=== PATIENT | female | born 1985 ===

== ENCOUNTER 2018-07-03 17:49 | Emergency (ER) | payer MEDICAID ==
[2018-07-03 17:59] VITALS: BMI 27.3
--- NOTE | 2018-07-03 18:07 | ED PDOC ---
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 Pt. stated that her period is due soon and should be today or tomorrow, been having lower back pain and pelvic cramp, no vaginal bleeding or discharge, no urinary symptoms, had extensive work ups with the obgyn couple months ago with negative result including STI profile, no fever or chills, no headache or night sweat, no rash, no numbness or tingling, no other medical or psychological complaints. Past Medical History - Provider Review Nursing Documentation Reviewed: Yes - Infectious Disease Hx of Infectious Diseases: None - Tetanus Immunization Tetanus Immunization: Unknown - Endocrine/Metabolic Hx Hyperthyroidism: Yes - Genitourinary/Gynecological Other/Comment: HX of HPV - Psychiatric Hx Substance Use: No - Surgical History Hx Section: Yes (x1) - Anesthesia Hx Anesthesia: No - Suicidal Assessment Feels Threatened In Home Enviroment: No Family/Social History - Physician Review Nursing Documentation Reviewed: Yes Family/Social History: Unknown Family HX Smoking Status: Never Smoked Hx Alcohol Use: No Hx Substance Use: No Allergies/Home Meds Allergies/Adverse Reactions: Allergies No Known Allergies Allergy (Verified 01/29/15 20:23) Review of Systems - Review of Systems Constitutional: absent: Fatigue, Fevers Eyes: absent: Vision Changes ENT: absent: Hearing Changes Respiratory: absent: SOB, Cough Cardiovascular: absent: Chest Pain Gastrointestinal: absent: Abdominal Pain, Nausea, Vomiting Genitourinary Female: Other (pelvic cramp) Musculoskeletal: Back Pain. absent: Arthralgias, Neck Pain, Myalgias Skin: absent: Rash, Pruritis Neurological: absent: Headache, Dizziness Psychiatric: absent: Anxiety, Depression, Suicidal Ideation Physical Exam Vital Signs Reviewed: Yes Temperature: Afebrile Blood Pressure: Normal Pulse: Regular Respiratory Rate: Normal Appearance: Positive for: Well-Appearing, Non-Toxic, Comfortable Pain Distress: Mild Mental Status: Positive for: Alert and Oriented X 3 - Systems Exam Head: Present: Atraumatic, Normocephalic Pupils: Present: PERRL Extroacular Muscles: Present: EOMI Conjunctiva: Present: Normal Mouth: Present: Moist Mucous Membranes Neck: Present: Normal Range of Motion Respiratory/Chest: Present: Clear to Auscultation, Good Air Exchange. No: Respiratory Distress, Accessory Muscle Use Cardiovascular: Present: Regular Rate and Rhythm, Normal S1, S2. No: Murmurs Abdomen: Present: Normal Bowel Sounds. No: Tenderness, Distention, Peritoneal Signs, Rebound, Guarding, McBurney's Point Tender, Rovsing's Sign Present, Hernias, Scars Genitourinary/Pelvic Exam: Present: Other (Pt. declined. ) Back: Present: Normal Inspection. No: CVA Tenderness, Midline Tenderness, Paraspinal Tenderness, Pain with Leg Raise, Decubitus Ulcer Upper Extremity: Present: Normal Inspection, Normal ROM. No: Cyanosis, Edema Lower Extremity: Present: Normal Inspection. No: Edema Neurological: Present: GCS=15, CN II-XII Intact, Speech Normal Skin: Present: Warm, Dry, Normal Color. No: Rashes Psychiatric: Present: Alert, Oriented x 3, Normal Insight, Normal Concentration Medical Decision Making ED Course and Treatment: 07/03/18 18:06 -UA -Transvaginal -Tylenol -Observe and reassess 07/03/18 20:10 -Urine hcg is negative -UA show no UTI -Transvaginal sonogram show Unremarkable pelvic ultrasound. -Pt. feels well, no pain now, all labs/radiology results discussed, advised pmd and obgyn follow up within 2 days, plus return to the ER for any new or worsening signs or symptoms. -Discharge home with motrin, bed rest, heat compression, follow up with your own pmd and obgyn within 2 days, return to the ER for any new or worsening signs or symptoms. - RAD Interpretation Radiology Orders: 07/03/18 18:03 TRANSVAGINAL [US] Stat EXAM: US Pelvis, Complete Transvaginal and Transabdominal COMPARISON: None provided. CLINICAL HISTORY: Pelvic/back pain TECHNIQUE: Transvaginal and transabdominal pelvic ultrasound (complete) with image documentation. FINDINGS: ENDOMETRIUM: Normal thickness, measuring 9 mm. UTERUS/CERVIX: The uterus appears within normal limits, measuring 8.7 x 7.1 x 7.5 cm. No uterine fibroid or other mass evident. RIGHT OVARY: Normal Doppler flow. No abnormal mass. Measures 3.9 x 3.7 x 1.9 cm. LEFT OVARY: Normal Doppler flow. No abnormal mass. Measures 2.8 x 1.6 x 2.8 cm. FREE FLUID: No free fluid. IMPRESSION: Unremarkable pelvic ultrasound. Electronically signed on Jul 03, 2018 8:04:21 PM EST by: Jeanine Ramon M.D., Certified by [facility], Diagnostic Radiology Electronic Technician: Radiologist - PA / HORSE BREAKER / Resident Statement MD/DO has reviewed & agrees with the documentation as recorded. Disposition/Present on Arrival - Present on Arrival Any Indicators Present on Arrival: No History of DVT/PE: No History of Uncontrolled Diabetes: No Urinary Catheter: No History of Decub. Ulcer: No History Surgical Site Infection Following: None - Disposition Have Diagnosis and Disposition been Completed?: Yes Diagnosis: Low back pain Disposition: HOME/ ROUTINE Disposition Time: 20:14 Patient Plan: Discharge Condition: IMPROVED Additional Instructions: -Discharge home with motrin, bed rest, heat compression, follow up with your own pmd and obgyn within 2 days, return to the ER for any new or worsening signs or symptoms. Prescriptions: Ibuprofen [Motrin Tab] 600 mg PO QID PRN #30 tab PRN Reason: Other Referrals: Phong Palafox MD [Primary Care Provider] - Follow up with primary Ana María Rodrigues MD [Staff Provider] - Follow up with primary Forms: [employer] (Armenian), WORK NOTE
[2018-07-03 18:10] VITALS: RESP 18; TEMP 98.5; O2SAT 100
[2018-07-03 18:44] LABS: PH,URINE 6.5 (4.7-8.0); URINE APPEARANCE CLEAR (CLEAR); URINE BILIRUBIN NEGATIVE (NEGATIVE); URINE BLOOD NEGATIVE (NEGATIVE); URINE COLOR YELLOW (YELLOW); URINE GLUCOSE (UA) NEGATIVE (NEGATIVE); URINE LEUKOCYTE ESTERASE NEGATIVE Leu/uL (NEGATIVE); URINE PROTEIN NEGATIVE mg/dL (<30 mg/dL); URINE UROBILINOGEN 0.2 E.U./dL (<1 E.U./dL)
[2018-07-03 19:40] VITALS: BP 110/55; PULSE 59
--- NOTE | 2018-07-04 12:08 | US ---
Date of service: 07/03/2018 PROCEDURE: HISTORY: suprapubic and back pain COMPARISON: TECHNIQUE: FINDINGS: The uterus measures 7.5 x 7.1 x 7.4 centimeters. The endometrium measures 9 millimeters. There is no free fluid the pelvis. The ovaries have a normal sonographic appearance. IMPRESSION: Normal pelvic ultrasound.
== END 2018-07-03 20:19 | disposition home or self-care (01) ==
LOC: ED 17:49
DX: M54.5 Low back pain (principal)